=== PATIENT | female | born 1950 | race Caucasian/White ===

== ENCOUNTER 2018-10-20 10:15 | Emergency (ER) | payer OTHER ==
[~2018-10-20] VITALS: Ht 170.2 cm; Wt 54.4 kg
[2018-10-20 10:30] LABS: ABSOLUTE NEUTROPHILS 17.7 thou/uL (1.4-8.2); BASOPHILS 0.2 % (0.0-2.0); HEMATOCRIT 36.5 % (37.0-47.0); HEMOGLOBIN 12.2 gm/dL (12.0-15.0); LYMPHOCYTES 3.5 % (24.0-44.0); MCH 28.6 pg (26.0-34.0); MCHC 33.5 g/dL (28.0-37.0); MCV 85.3 fL (80.0-100.0); MONOCYTES 2.8 % (1.0-8.0); PLATELET COUNT 410 thou/uL (150-400); POLYS 93.5 % (36.0-66.0); RBC 4.27 mil/uL (4.20-5.00); RDW 15.5 % (10.5-14.5); WBC 18.9 thou/uL (4.0-11.0)
[2018-10-20 10:35] LABS: URINE BLOOD 1+ (Negative); URINE CLARITY CLOUDY; URINE COLOR YELLOW; URINE GLUCOSE-RANDOM* NEGATIVE (Negative); URINE KETONES 3+ (Negative); URINE LEUKOCYTES 2+ (Negative); URINE NITRITE POSITIVE (Negative); URINE PROTEIN (DIPSTICK) 1+ (Negative); URINE SPECIFIC GRAVITY >= 1.030 (1.005-1.035)
[2018-10-20 10:46] LABS: CREATININE 0.8 mg/dL (0.6-1.0); POTASSIUM 3.6 mmol/L (3.5-5.1)
[2018-10-20 10:51] LABS: ALBUMIN 2.4 g/dL (3.4-5.0); TOTAL BILIRUBIN 0.6 mg/dL (<0.1-1.0); TOTAL PROTEIN 7.9 g/dL (6.4-8.2)
[2018-10-20 11:02] LABS: ICTOTEST (BILI CONFIRMATORY) Negative (Negative); URINE BILIRUBIN NEGATIVE (Negative)
[2018-10-20 11:04] LABS: URINE REDUCING SUBSTANCE NEGATIVE
[2018-10-20 11:07] LABS: CRYSTALS None Seen /LPF (None Seen); HYALINE CASTS 0-3 Few /LPF (None Seen); SQUAMOUS 0-3 Few /LPF (0-3); URINE RBC None Seen /HPF (0-2); URINE WBC >25 Many /HPF (0-5)
[2018-10-20 16:11] VITALS: BP 129/76
== END 2018-10-20 16:13 | disposition short-term general hospital (02) ==
LOC: ER 10:15
PROVIDERS: Emergency Medicine
DX: N13.30 Unspecified hydronephrosis (principal); N39.0 Urinary tract infection, site not specified; R19.00 Intra-abdominal and pelvic swelling, mass and lump, unspecified site; Z88.5 Allergy status to narcotic agent; Z88.0 Allergy status to penicillin

== ENCOUNTER 2018-11-10 13:16 | Inpatient (IN) | payer OTHER ==
[~2018-11-10] VITALS: Ht 170.2 cm; Wt 52.0 kg
--- NOTE | ~2018-11-10 | O ---
[facility] [place] [address] OPERATIVE REPORT Name: ANTOINE LACKEY Room #: 427-P ADM IN M.R.#: [id number] Admission: 11/10/18 ������������������ Attend Phys: Iftikhar Novoa MD Discharge: ������������������ Date of : 48 Report #: [id number] THIS REPORT FOR: //name// CC: FAM unknown Iftikhar Novoa PREOPERATIVE DIAGNOSIS: Near obstructing sigmoid mass. POSTOPERATIVE DIAGNOSES: Near obstructing sigmoid mass and a suspicious liver lesion on the anterior aspect of the left lobe of the liver. OPERATIVE PROCEDURE DONE: 1. Laparoscopic sigmoidectomy with colorectal anastomosis. 2. Laparoscopic splenic flexure mobilization. 3. Liver biopsy. OPERATING SURGEON: Jameel Berry MD. INDICATIONS: The patient is a 68-year-old female who presented with features of cachexia, weight loss, abdominal discomfort and features of partial bowel obstruction. The patient had a CT scan and the colonoscopy that showed a sigmoid mass that is suspicious. The patient was advised laparoscopic resection of the same. DESCRIPTION OF PROCEDURE: After explaining to the patient in detail and informed consent was obtained, the patient was identified in the preoperative holding area. The patient was transferred to the operating room and was placed in supine position. Sequential compression devices were placed for DVT prophylaxis. Preoperative antibiotics were given. After induction of anesthesia, the abdomen was prepped and draped in a sterile fashion. Through a right upper quadrant 1-cm incision and using Optiview technique, peritoneal cavity was entered and pneumoperitoneum was created. Thereafter, under direct vision, another 5-mm trocar was placed in the right lower quadrant. A 12-mm trocar was placed through a supraumbilical vertical incision and the 5-mm trocar was placed in the left flank region. On initial inspection, there was no evidence of any metastatic disease on the liver, except for one area on the anterior surface of the left lobe of the liver that was not very suspicious; however, appeared a little whitish. Therefore, I decided to biopsy this area. A small segment of this lesion was sent for histopathology. Once this was completed, the patient was placed in Trendelenburg position. The colon was mobilized along the white line of Toldt. This was continued superiorly. I continued the dissection along the avascular plane using sharp and blunt dissection superiorly up to the splenic flexure. The splenic flexure was mobilized. The small bowel was mobilized. Once this was completed, I continued to mobilize the colon inferiorly. The sigmoid was found to be adherent onto the lateral abdominal wall. This had to be dissected using sharp and blunt dissection. I then dissected on the distal transection point at the sigmoid [address] [address] OPERATIVE REPORT Name: ANTOINE LACKEY Room #: 427-P [facility] IN M.R.#: [id number] Admission: 11/10/18 ������������������ Attend Phys: Iftikhar Novoa MD Discharge: ������������������ Date of : 48 Report #: [id number] rectal region. A window was created in the mesentery at this point and once this was completed, using an Endo-IONA green load stapler, the colon was divided at the rectosigmoid region. I then divided the small distal sigmoid vessels using another white load stapler on the mesentery. I continued to divide the mesentery proximally. The inferior mesenteric artery was divided at its root using EnSeal. Once this was completed, I then decided to exteriorize the colon through a midline incision measuring approximately about 6 cm. The peritoneal cavity was entered. An Jatinder wound protector was then inserted. The colon was then exteriorized. I then used a dilator to assess the rectum. A 25 and a 28 size dilators were inserted and both went in without difficulty up to about 10 cm. There was some difficulty to kind of pass all the way up to the staple line for some reason; therefore, I decided to take out another 3 more centimeters of the rectal stump by using another green load stapler. Once this was completed, I then used a size 28-mm anvil and this was inserted into the descending colon after dividing the descending sigmoid junction. Prior to this, a purse magan was used to place a pursestring suture in the descending colon and through this, the anvil was inserted. The sigmoid colon was removed. The pursestring suture was ligated with the tip of the anvil pointing out. Once this was completed, a 28-mm circular stapler was then inserted into the rectum and this was advanced. An end-to-end anastomosis was then made. The donuts were then examined and were found to be intact. An air leak test was performed. There was no leak that was noted along the staple line. Through saline irrigation of the abdomen was given. Absolute hemostasis was ensured. The abdomen was then deflated. The wound protector was removed and the midline incision was closed with a #1 PDS for the fascia. Skin was closed with makenna. Dressing was placed. Prior to this, a 19-Uruguayan SMITH drain was placed in the pelvis. The patient was awoken from anesthesia and was transferred to the recovery room in stable condition. ESTIMATED BLOOD LOSS: Approximately 150 mL. CONDITION OF THE PATIENT: Stable. FLUIDS GIVEN: Per Anesthesia note. SPECIMEN SENT: Sigmoid colon and a liver biopsy specimen. COMPLICATIONS: None. ANESTHESIA: General anesthesia. ��������������������������������������������� ���������������������������������������� By: ��������������������������������������������� 2001 34 Jameel Berry MD /sachin
[2018-11-10 13:18] VITALS: BP 117/68
[2018-11-10 13:49] LABS: HEMATOCRIT 38.5 % (37.0-47.0); HEMOGLOBIN 13.2 gm/dL (12.0-15.0); MCH 29.4 pg (26.0-34.0); MCHC 34.4 g/dL (28.0-37.0); MCV 85.3 fL (80.0-100.0); PLATELET COUNT 279 thou/uL (150-400); RBC 4.51 mil/uL (4.20-5.00); RDW 18.8 % (10.5-14.5); WBC 6.6 thou/uL (4.0-11.0)
[2018-11-10 14:04] LABS: ANION GAP 16 mmol/L (7-16); BUN 15 mg/dL (7-18); CALCIUM 9.7 mg/dL (8.5-10.1); CHLORIDE 94 mmol/L (98-107); CO2 25 mmol/L (21-32); CREATININE 0.9 mg/dL (0.6-1.0); GLUCOSE 160 mg/dL (74-106); POTASSIUM 3.5 mmol/L (3.5-5.1); SODIUM 135 mmol/L (136-145)
[2018-11-10 14:10] LABS: ALBUMIN 2.8 g/dL (3.4-5.0); LIPASE 79 U/L (73-393); SGOT 17 U/L (15-37); SGPT 12 U/L (30-65); TOTAL BILIRUBIN 0.7 mg/dL (<0.1-1.0); TOTAL PROTEIN 7.6 g/dL (6.4-8.2); TROPONIN-I <0.06 ng/mL (<0.06)
[2018-11-10 14:20] LABS: ABSOLUTE NEUTROPHILS 4.5 thou/uL (1.4-8.2); ANISOCYTOSIS 1+; METAMYELOCYTES 1 %; NUCLEATED RBCS 1 /100WBC
[2018-11-10 16:59] VITALS: BP 154/65
[2018-11-10 17:46] VITALS: BP 104/61
[2018-11-10 17:47] LABS: ALBUMIN 2.9 g/dL (3.4-5.0); TOTAL PROTEIN 7.3 g/dL (6.4-8.2)
[2018-11-10 18:50] LABS: TSH 1.882 uIU/mL (0.358-3.740)
[2018-11-10 19:23] VITALS: BP 110/59
--- NOTE | 2018-11-10 19:53 | NUR ---
PT ARRIVED TO UNIT FROM ED AT 18:45. PT ORIENTED TO ROOM AND CALL LIGHT. IV FLUIDS STARTED ORDERED. YELLOW SOCKS AND BED ALARM ON. REPORT GIVEN TO ONCOMING SHIFT.
--- NOTE | 2018-11-10 23:35 | NUR ---
PATIENT ADMITTED TO 4E FROM ED AT 1840 ACCOMPANIED BYMATY RODRIGUES. ARRIVEN VIA W/C. PATIENT ALERT AND ORIENTED X4. FORGETFUL. NEEDS REINFORCEMENT OF THINGS. DENIES N/V/PAIN WHEN ARRIVED ON UNIT. BOWEL PREP STARTED. IV FLUIDS RUNNING AT 125ML/HR.
[2018-11-11 04:41] VITALS: BP 111/57
[2018-11-11 05:31] LABS: HEMATOCRIT 33.7 % (37.0-47.0); HEMOGLOBIN 11.3 gm/dL (12.0-15.0); MCH 28.9 pg (26.0-34.0); MCHC 33.6 g/dL (28.0-37.0); MCV 86.1 fL (80.0-100.0); RBC 3.92 mil/uL (4.20-5.00); RDW 19.1 % (10.5-14.5); WBC 5.2 thou/uL (4.0-11.0)
[2018-11-11 05:44] LABS: CALCIUM 8.5 mg/dL (8.5-10.1); CREATININE 0.5 mg/dL (0.6-1.0); MAGNESIUM 1.7 mg/dL (1.8-2.4); POTASSIUM 3.5 mmol/L (3.5-5.1)
[2018-11-11 08:00] VITALS: BP 121/64
--- NOTE | 2018-11-11 09:39 | NUR ---
ASSUMED CARE AT 0700, SHIFT ASSESSMENT DONE, NPO SINCE LAST NIGHT. BOWEL PREP COMPLETE. CONSULTS CALLED. LEFT FOR COLONOSCOPY AT 0900 AM.
--- NOTE | 2018-11-11 16:38 | EKG ---
[place] [address] [facility] [place] [address] ELECTROCARDIOGRAM REPORT Name: ANTOINE LACKEY Room #: 424-P ADM IN M.R.#: [id number] ������������������ Admission: 11/10/18 ������������������ Attend Phys: Iftikhar Novoa MD Discharge: ������������������ Date of : 48 Report #: [id number] ����������������������������������������������������������������� [id number] THIS REPORT FOR: //name// [facility] ED Test Date: 2018-11-10 Test Time: 13:52:40 Pat Name: ANTOINE LACKEY Department: Room: [facility] Gender: F Customer Success Associate: ZAG : 1950 Requested By: Dennys Hernandez Order Number: [id number] MD: Tunde Tirado Measurements Intervals Wells Rate: 84 P: 92 AL: 115 QRS: 80 QRSD: 78 T: 77 QT: 360 QTc: 426 Interpretive Statements Sinus rhythm Borderline short AL interval No previous ECG available for comparison Electronically Signed On 11-11-2018 16:37:46 CDT by Tunde Tirado [email or web address] ��������������������������������������������� <ELECTRONICALLY SIGNED> ���������������������������������������� By: Tunde Tirado MD, [facility] ��������������������������������������������� 11/11/18 1637 1352 51 Tunde Tirado MD, FACC /EPI
--- NOTE | 2018-11-11 17:23 | NUR ---
PATIENT CAME BACK FROM EGD AT 1200, VSS. REPORTED ABDOMINAL CRAMPING AND PAIN. PRN SIMETHICONE AND DILAUDID GIVEN. PATIENT TO BEGIN BOWEL PREP FROM THIS EVENING. WENT DOWN TO [facility] TO ROOM 225.
[2018-11-11 17:34] VITALS: BP 139/74
--- NOTE | 2018-11-11 22:08 | NUR ---
Assumed pt care at 1900,pt A/OX4,very tearful at beginning of shift stating nobody understands her and what she's going through 1:1 reassurance provided and pt calm down. Medicated with Dilaudid/Zofran and pt verbalized feeling better. Pt was supposed to start bowel prep at 1700,she declined stating she can't handle it today and wants it rescheduled for tomorrow and colonoscopy the next day. notified regarding above at 2134,no new orders given.IVF infusing via LAC without any problems noted. Pt resting quietly with eyes closed at this time. Hourly rounding done. Call light/personal items within reach.Will continue to monitor pt.
[2018-11-12 07:15] LABS: HEMATOCRIT 35.6 % (37.0-47.0); HEMOGLOBIN 12.1 gm/dL (12.0-15.0); MCH 29.3 pg (26.0-34.0); MCV 86.3 fL (80.0-100.0); RBC 4.13 mil/uL (4.20-5.00); WBC 6.3 thou/uL (4.0-11.0)
[2018-11-12 07:52] LABS: CALCIUM 8.1 mg/dL (8.5-10.1); CREATININE 0.6 mg/dL (0.6-1.0); MAGNESIUM 1.6 mg/dL (1.8-2.4)
[2018-11-12 07:57] LABS: POTASSIUM 2.8 mmol/L (3.5-5.1)
[2018-11-12 08:54] VITALS: BP 122/80
--- NOTE | 2018-11-12 14:41 | NUR ---
INITIAL ASSESSMENT: APOLLO reviewed chart and spoke with nursing and attending physician. Pt [facility] to [facility] from . Pt was admitted from home due to intractable vomiting/weight loss. Pt with sigmoid mass. Attempt to do colonoscopy yesterday was unsuccessful. Pt did not do the bowel prep last night as instructed. SW met with pt at bedside. Introduced role of SW. Pt is alert/orientated. Pt reports she lives at home in an apt. Pt lives on the third floor and there is not an elevator. Pt must climb the stairs to get to her apt. Pt does not use any DME. No hx of HH services or SNF/ Rehab placement. Pt states she does not have a PCP. SW explained that bowel prep is needed in order to have a successful colonoscopy. Pt verbalized understanding. SW discussed discharge needs. Pt states she does not have any family/friends who are able to assist her. Pt with family hx of colon cancer. SW discussed possible need for SNF/Rehab placement. Pt states she will not consider going to a facility. APOLLO updated GI SUPERVISOR SHUTTLE [employer]TING, who came to see pt. Pt agreeable with starting bowel prep. SW is following to assist as needed with discharge planning.
--- NOTE | 2018-11-12 18:35 | NUR ---
ASSUMED CARE OF PATIENT AT 0715, PATIENT ALERT AND ORIENTED X 4. UP WITH ASSIST X 1 TO BATHROOM. PATIENT C/O NAUSEA TODAY, ZOFRAN AND COMPAZINE GIVEN IV, WITH GOOD RELIEF. PATIENT C/O PAIN WITH ABDOMEN AREA, HYDROMORPHNE 0.5 MG IV GIVEN. PATIENT CONTINUES TO BE NPO, REFUSED BOWEL PREP LASTNIGHT. BOWEL PREP ORDERED FOR TONIGHT FOR COLONOSCOPY TOMORROW. SCOP PATCH ORDERED TO ASSIST WITH NAUSEA, APPLY PRIOR TO STARTING BOWL PREP. PATIENT HAD IV LEFT AC, NO GOOD, NEW IV STARTED RIGHT FOREARM, WITH NS AT 125CC/HR. PATIENT HAS HAD 3 LOOSE STOOLS THIS SHIFT, VOIDING WITHOUT DIFFICULTY. X-RAY OF ABDOMEN ORDERED AND DONE THIS SHIFT. CRITICAL LAB POTASSIUM 2.8, POTASSIUM IVPB GIVEN X 2. CHARLY CONTINUE TO MONITOR.
[2018-11-12 20:58] VITALS: BP 130/71
--- NOTE | 2018-11-12 23:06 | NUR ---
Assumed pt care at 1900. Pt A/OX4,VSS.C/o some pain to abd but states it tolerable.No c/o nausea on assessment,Scolpamine patch applied behind left ear and bowel prep initiated approx 193. Pt drinking the prep with Gatorade stating the sight of water simply makes her gag. Medicated with Zofran after the second cup of prep,pt is not complaining of nausea but reports her stomach is cramping and she cannot take anymore prep. So far she has drunk 720ml of the prep almost care home through bottle. Pt is having small lose brown stools at this time.Pt needs a lot of encouragement to keep following POC.Potassium administered per protocol,awaiting lab to draw blood.IVF infusing via RFA iv without any problems. Up is weak and requires assist of 1 with transfers/ADLs. Bed alarm on,call light within reach. Will continue to monitor pt.
[2018-11-13 08:46] LABS: HEMATOCRIT 30.6 % (37.0-47.0); HEMOGLOBIN 10.6 gm/dL (12.0-15.0); MCH 29.5 pg (26.0-34.0); MCHC 34.5 g/dL (28.0-37.0); MCV 85.5 fL (80.0-100.0); RBC 3.58 mil/uL (4.20-5.00); RDW 19.6 % (10.5-14.5); WBC 4.9 thou/uL (4.0-11.0)
[2018-11-13 09:05] LABS: ALBUMIN 2.1 g/dL (3.4-5.0); CALCIUM 8.3 mg/dL (8.5-10.1); CREATININE 0.6 mg/dL (0.6-1.0); POTASSIUM 3.7 mmol/L (3.5-5.1); TOTAL BILIRUBIN 0.6 mg/dL (<0.1-1.0); TOTAL PROTEIN 5.8 g/dL (6.4-8.2)
--- NOTE | 2018-11-13 10:35 | NUR ---
SW reviewed chart and spoke with nursing and attending physician. Pt did half of bowel prep for colonoscopy today. Pt may need post-acute placement at time of discharge. APOLLO will follow up with pt after colonoscopy to assist as needed with discharge planning.
--- NOTE | 2018-11-13 19:06 | PATH ---
[facility] [address] [place] [address] PATHOLOGY RPT PROCEDURE Name: CANDACE LACKEY Room #: 225-P ADM IN M.R.#: [id number] ������������������ Admission: 11/10/18 ������������������ Date of : 48 Discharge: Report #: [id number] Path Case #: [id number] [facility] Accession Number: [id number] . 01 Material submitted: . duodenum - DUODENAL BIOPSY R/O MALIGNANCIES . 01 Clinical history: . Weight loss, nausea, vomiting, sigmoid mass Nodular duodenal mucosa Rule out malignancies . 02 Diagnosis: Small bowel mucosa, "duodenum rule out malignancy", endoscopic biopsy: - Gastric cardia and fundic-type mucosa, compatible with gastric heterotopia, clinically nodules. - Negative for dysplasia or malignancy. (IUV:pit 11/13/2018) QTP/11/13/2018 . 02 Electronically signed: . Sera Hines MD, Pathologist NPI- [id number] . 01 Gross description: . The specimen is received in formalin, labeled "Leonard, Candace, duodenal biopsy" and consists of multiple fragments of harvey tissue measuring 1.3 x 0.6 x 0.3 cm in aggregate which are entirely submitted in A1. (SDY; 11/12/2018) SYU/SYU . 02 Pathologist provided ICD-10: Q40.2 . 02 CPT . 995779 Specimen Comment: A courtesy copy of this report has been sent to Specimen Comment: [phone], . Specimen Comment: Report sent to / DR LIZAMA Performed at: [address], [place] [id number] MD Quentin Baeza MD Phone: [phone] Performed at: [address] [id number] MD Sera Hines MD Phone: [phone]
[2018-11-13 19:11] VITALS: BP 127/83
--- NOTE | 2018-11-13 19:46 | NUR ---
CONSULTED TO PLACE A PICC FOR A PATIENT NEEDING TPN. ORDER AND CONSENT NOTED. THE PROCEDURE WELL RISK AND BENIFITS DISCUSSED WITH THE PATIENT AND SHE VERBALIZED UNDERSTANDING. THE RIGHT UPPER ARM BASILIC WAS WIDLEY PATENT. A #5F DOUBLE LUMEN POWER PICC WAS PLACED PER HOSPITAL POLICY AFTER A BEDSIDE TIMEOUT WAS COMPLETE. THE PICC WAS TRIMMED TO 37CM AND ADVANCED WITHOUT DIFFICULTY. A STAT CHEST XRAY CONFIRMED LINE IN PROPER POSITION. LINE SECURED AND RELEASED FOR USE
--- NOTE | 2018-11-14 06:41 | NUR ---
PATIENT ALERT AND ORIENTED X4. C/O PAIN X2, MED GIVEN. C/O N WITH DRY HEAVES X2, MED GIVEN. UP TO BATHROOM WITH ASSIST. PPN HUNG AROUND 2245. PUT HAT IN BATHROOM FOR URINE. SLEPT LITTLE THIS SHIFT.
[2018-11-14 07:29] LABS: HEMATOCRIT 31.2 % (37.0-47.0); MCH 29.9 pg (26.0-34.0); MCHC 35.2 g/dL (28.0-37.0); MCV 84.9 fL (80.0-100.0); RBC 3.67 mil/uL (4.20-5.00); RDW 19.8 % (10.5-14.5); WBC 4.8 thou/uL (4.0-11.0)
[2018-11-14 07:40] LABS: CALCIUM 8.2 mg/dL (8.5-10.1); CREATININE 0.5 mg/dL (0.6-1.0); MAGNESIUM 1.6 mg/dL (1.8-2.4); POTASSIUM 3.1 mmol/L (3.5-5.1)
[2018-11-14 07:45] VITALS: BP 125/73
--- NOTE | 2018-11-14 10:06 | NUR ---
PATIENT CARE WAS ASSUMED AT 0715.PATIENT ALERT AND ORIENTED X4.PATIENT IS ABLE TO AMBULATE WITH STAND BY ASSIST.PT COMPLAINS OF NAUSEA,HAVE NOT WITNESS ANY VOMIT,PT DRY HEAVES.PT WAS ENCOURAGE TO TAKE DEEP BREATHS AND SLOW HER BREATHING DOWN.PT HAS ANXIETY ABOUT WHAT IS GOING ON WIH HER HEALTH.PICC LINE WAS PLACED YESTERDAY PPN AND NS IS CURRENTLY INFUSING.PT STILL HAS LOOSE STOOL.CALL LIGHT, PHONE, AND PERSONAL BELONGINGS ARE WITHIN REACH.
--- NOTE | 2018-11-14 10:22 | NUR ---
Note pt starting tpn. Recommend slow advance to final goal rate of 60ml/hr. Recommend orders for pharmacy to manage.
--- NOTE | 2018-11-14 15:05 | PATH ---
[facility] [address] [place] [address] PATHOLOGY RPT PROCEDURE Name: CANDACE LACKEY Room #: 225-P ADM IN M.R.#: [id number] ������������������ Admission: 11/10/18 ������������������ Date of : 48 Discharge: Report #: [id number] Path Case #: [id number] L[facility] Accession Number: [id number] . 01 Material submitted: . rectum - BX POLYP AT RECTUM . 01 Clinical history: . Pre-OP DX: Nausea with vomiting, sigmoid mass Post-OP DX: Sigmoid obstruction, diverticulosis, rectal polyp . 02 Diagnosis: Colonic mucosa "rectum", biopsy: - Hyperplastic polyp. - There is no evidence of adenomatous change, high grade dysplasia or malignancy. (SHA/db; 11/14/2018) LBQ/11/14/2018 . 02 Electronically signed: . Laurent Marino MD, Pathologist NPI- [id number] . 01 Gross description: . Received in formalin labeled "Candace Lackey, BX polyp at rectum," is a single segment of harvey soft tissue measuring 0.3 cm in maximum dimension. The specimen is entirely submitted in cassette A1. (TSD; 11/13/2018) TOB/TOB . 02 Pathologist provided ICD-10: K62.1 . 02 CPT . 107296 Specimen Comment: A courtesy copy of this report has been sent to Specimen Comment: [phone], . Specimen Comment: Report sent to / DR LIZAMA Specimen Comment: A duplicate report has been generated due to demographic updates. Performed at: [address] [id number] MD Quentin Baeza MD Phone: [phone] Performed at: [address] [id number] [address] [address] PATHOLOGY RPT PROCEDURE Name: CANDACE LACKEY [facility] Room #: 225-P [facility] IN M.R.#: [id number] ������������������ Admission: 11/10/18 ������������������ Date of : 48 Discharge: Report #: [id number] Path Case #: [id number] MD Sera Hines MD Phone: [phone]
[2018-11-14 16:19] LABS: CREATININE 0.5 mg/dL (0.6-1.0); MAGNESIUM 1.5 mg/dL (1.8-2.4); POTASSIUM 3.2 mmol/L (3.5-5.1)
--- NOTE | 2018-11-14 16:20 | NUR ---
APOLLO reviewed chart and spoke with nursing and attending physician. Pt to have laparoscopic sigmoidectomy on Saturday per surgery. Pt is on TPN. APOLLO met with pt at bedside to provide update and discuss discharge plan. Pt very tearful stating she is worried about the surgery. Supportive listening provided. APOLLO discussed need for post-acute placement with pt and provided list with in-network SNFs for review. Pt verbalized understanding and will review list. No weekend discharge anticipated. Will need insurance authorization for post-acute placement. APOLLO is following to assist as needed with discharge planning.
[2018-11-14 20:17] VITALS: BP 131/77
--- NOTE | 2018-11-15 04:38 | NUR ---
PATIENT ALERT AND ORIENTED X4. ALWAYS SLIGHTLY ANXIOUS TO MODERATE. THIS NURSE HUNG TPN AT 20ML/HR PPN WAS INFUSING BEFORE ORDERS CHANGED. IVF HAS BEEN DISCONTINUED. COOPERATIVE WITH CARE. UP WITH SBA TO BATHROOM. MEDICATED FOR PAIN X1 DURING THE NIGHT WITH GOOD RESULTS. ALSO MEDICATED WITH ZOFRAN - PATIENT HAS HAD DRY HEAVES WITH NO EMESIS. MAY HAVE SURGERY SATURDAY. RESTING QUIETLY. WILL MONITOR.
[2018-11-15 06:22] LABS: HEMATOCRIT 28.1 % (37.0-47.0); HEMOGLOBIN 9.7 gm/dL (12.0-15.0); MCH 29.3 pg (26.0-34.0); MCHC 34.5 g/dL (28.0-37.0); MCV 85.1 fL (80.0-100.0); RBC 3.3 mil/uL (4.20-5.00); RDW 19.5 % (10.5-14.5); WBC 4.6 thou/uL (4.0-11.0)
[2018-11-15 06:37] LABS: ALBUMIN 1.8 g/dL (3.4-5.0); CALCIUM 7.9 mg/dL (8.5-10.1); CREATININE 0.4 mg/dL (0.6-1.0); MAGNESIUM 1.6 mg/dL (1.8-2.4); TOTAL BILIRUBIN 0.7 mg/dL (<0.1-1.0); TOTAL PROTEIN 5.2 g/dL (6.4-8.2)
[2018-11-15 06:41] LABS: POTASSIUM 2.9 mmol/L (3.5-5.1)
[2018-11-15 08:26] VITALS: BP 117/68
--- NOTE | 2018-11-15 16:15 | NUR ---
ASSUMED CARE OF PATIENT AT 0715, PATIENT ALERT AND ORIENTED X 4. PATIENT UP WITH SBA TO BATHROOM, AND PATIENT AMBULATED IN HALLWAYS WITH THIS RN THIS AFTERNOON, PATIENT GETTING SOMEWHAT STRONGER, STILL HAS SOME WEAKNESS. PATIENT CONTINUES TO HAVE DIARRHEA X 3 PRIOR TO TRANSFER, URINATING W/O DIFFICULTY. PATIENT HAS C/O NAUSEA X 2 PRIOR TO TRANSFER TO [facility]. PATIENT RECEIVED SPONGE BATH THIS AM. PATIENT C/O PAIN X 1 HYDROMORPHONE 0.5 MG IV GIVEN WITH GOOD RELIEF. PATIENT HAS TPN AT 20CC/HR, PHARMACY WILL INCREASE TPN TOLERATED. PATIENT HAS REDNESS TO TAILBONE AREA. PATIENT WILL HAVE SURGERY ON SATURDAY/DR WRIGHT. WILL REPORT Paula LIU/RN.
--- NOTE | 2018-11-15 18:21 | NUR ---
PATIENT TRANSFERRED TO , REPORT GIVEN TO ALEXA/YANNI. EVERYTHING DONE ON THIS PATIENT. ALL PERSONAL BELONGINGS AND CHART SENT WITH THE PATIENT.
[2018-11-15 19:45] VITALS: BP 115/65
--- NOTE | 2018-11-15 23:55 | NUR ---
Assumed care of pt at 1900. Pt alert and oriented x4. Stand by assist to the restroom. Pt is anxious this hs and wants to be able to sleep. Pain controlled with prn pain meds and antiemetics administered as well. TPN infusing. Call light within reach. Fall precautions in place. Report given to elvis rivera rn.
[2018-11-16 04:00] VITALS: BP 123/60
[2018-11-16 06:03] LABS: HEMATOCRIT 26.7 % (37.0-47.0); HEMOGLOBIN 9.3 gm/dL (12.0-15.0); MCHC 34.7 g/dL (28.0-37.0); MCV 86.5 fL (80.0-100.0); RBC 3.09 mil/uL (4.20-5.00); RDW 19.5 % (10.5-14.5)
[2018-11-16 06:14] LABS: CALCIUM 8.2 mg/dL (8.5-10.1); CREATININE 0.4 mg/dL (0.6-1.0); MAGNESIUM 2.1 mg/dL (1.8-2.4); PHOSPHORUS 3.4 mg/dL (2.5-4.9); POTASSIUM 3.8 mmol/L (3.5-5.1)
[2018-11-16 07:03] VITALS: BP 115/60
--- NOTE | 2018-11-16 09:39 | NUR ---
PT A&OX4, PICC IN EMEKA INFUSING TPN @ 20/HR. AMBULATES WITH STAND BY ASSIST AND IS WEAK. PT WILL START BOWEL PREP TODAY. ON CLEAR LIQUIDS. PT HAVING NAUSEA AND ABD PAIN. MEDICATED FOR SYMPTOMS. WILL CONT POC.
[2018-11-16 16:08] VITALS: BP 123/66
[2018-11-16 20:30] VITALS: BP 115/61
[2018-11-17 04:31] VITALS: BP 107/58
[2018-11-17 06:01] LABS: HEMATOCRIT 26.2 % (37.0-47.0); MCH 29.8 pg (26.0-34.0); MCHC 34.3 g/dL (28.0-37.0); MCV 86.9 fL (80.0-100.0); RBC 3.02 mil/uL (4.20-5.00); RDW 19.3 % (10.5-14.5); WBC 5.5 thou/uL (4.0-11.0)
[2018-11-17 06:15] LABS: CALCIUM 7.6 mg/dL (8.5-10.1); CREATININE 0.5 mg/dL (0.6-1.0); MAGNESIUM 2.3 mg/dL (1.8-2.4)
[2018-11-17 06:16] LABS: POTASSIUM 2.3 mmol/L (3.5-5.1)
--- NOTE | 2018-11-17 06:32 | NUR ---
LAB CALLED CRITICAL POTASSIUM OF 2.3 THIS AM,SALES TRAINING REPRESENTATIVE ON DUTY NOTIFIED,PROTOCOL FOLLOWED.SURGERY CAME BY TO TAKE PT DOWN FOR SURGERY,RN STATED THATS SHE WILL NOT BE ABLE TO TAKE PT DOWN TILL POTASSIUM IS CORRECTED,SHE WILL CALL BACK TO LET US KNOW THE NEXT PLAN.PT NPO SINCE [place],ORAL CARE PROVIDED.UP TO BR WITH SBA,HAD EIGHT WATERY STOOLS OVERNIGHT.PT STATED THAT HER BUTTOCK IS SORE,BARRIER CREAM APPLIED,OPTIFOAM APPLIED TOO TO CUSHION HET TAIL BONE PER PT'S REQUEST.TPN GIVEN ORDERED.CONSENT SIGNED IN THE CHART.WILL CONT TO MONITOR.
[2018-11-17 08:09] VITALS: BP 112/52
--- NOTE | 2018-11-17 13:53 | NUR ---
VASCULAR ACCESS NURSE ROUNDING- LINE CONTINUES TO BE APPROPRIATE. THE PATIENT CONTINUES ON TPN AND IV ANTIBIOTICS PENDING SURGERY
[2018-11-17 17:06] VITALS: BP 96/54
--- NOTE | 2018-11-17 17:37 | NUR ---
SW reviewed chart and spoke with attending physician. Pt's surgery today has been rescheduled for Saturday, due to hypokalemia. Pt remains on TPN. SW will follow up with pt tomorrow regarding discharge plans-post acute placement. APOLLO is following to assist as needed with discharge planning.
[2018-11-17 19:37] VITALS: BP 96/48
--- NOTE | 2018-11-18 04:43 | NUR ---
Assumed pt care at 1900,pt A/OX4,VSS.Up with assist of 1/IV pole to the bathroom. C/o abd pain and nausea,medictaed per EMAR with relief reported.Voiding without any difficulties.TPN&fluids infusing via RUE PICC line without any problems. Bed alarm on as pt forgets to call for assistance,hourly rounding done. Pt resting quietly at this time with no distress noted,vero continue to monitor pt.
[2018-11-18 05:52] VITALS: BP 104/51
[2018-11-18 06:34] LABS: HEMATOCRIT 26.4 % (37.0-47.0); HEMOGLOBIN 8.9 gm/dL (12.0-15.0); MCH 29.9 pg (26.0-34.0); MCHC 33.7 g/dL (28.0-37.0); MCV 88.6 fL (80.0-100.0); RBC 2.98 mil/uL (4.20-5.00); RDW 20.6 % (10.5-14.5); WBC 5.4 thou/uL (4.0-11.0)
[2018-11-18 06:49] LABS: CALCIUM 8.4 mg/dL (8.5-10.1); CREATININE 0.4 mg/dL (0.6-1.0); MAGNESIUM 2.2 mg/dL (1.8-2.4); PHOSPHORUS 2.4 mg/dL (2.5-4.9); POTASSIUM 4.6 mmol/L (3.5-5.1)
[2018-11-18 07:24] VITALS: BP 105/59
[2018-11-18 09:38] VITALS: BP 99/51
--- NOTE | 2018-11-18 09:54 | NUR ---
APOLLO reviewed chart and spoke with nursing. Pt is transferring from [facility]. APOLLO met with pt at bedside. Pt's surgery is scheduled for tomorrow. APOLLO discussed post-acute plans with pt. Pt states she has reviewed list and would like a referral to be sent to [facility] for review. Pt hopes to be able to start eating after surgery. Pt is currently on TPN. APOLLO/environmental restoration planner to send referral to [facility]. SW notified [facility] liaison. APOLLO is following to assist as needed with discharge planning.
--- NOTE | 2018-11-18 12:45 | NUR ---
DP sent inital referral SNF to [facility]. Patient will dc later this week. SERENA sent text to Teresa/admissions at [facility] to let her know.
[2018-11-18 20:25] VITALS: BP 104/61
--- NOTE | 2018-11-19 02:14 | NUR ---
Assumed pt care @ 1900.Pt A/OX4,up with SBA/IV pole. VSS.C/o abd pain LOP 5/10 medicated per EMAR with relief reported.Did c/o nausea but declined need for antiemetics. Pt has been having episodes of crying on and off through shift r/t surgery 1:1 reassurance provided and pt calms down easily. PICC line patent on RUE infusing TPN/fluids without problems. Pt was going to have pre-op shower before bedtime but declined stating she's too tired to do anything,prompted X2 with no success;will attempt again later. Pt has been NPO since midnight. Resting quietly at this time eyes closed,will continue to monitor. Bed alarm on and call light/personal items placed within reach.
[2018-11-19 05:09] LABS: HEMOGLOBIN 8.4 gm/dL (12.0-15.0); MCH 30.2 pg (26.0-34.0); MCHC 33.8 g/dL (28.0-37.0); MCV 89.3 fL (80.0-100.0); RBC 2.8 mil/uL (4.20-5.00); RDW 21.9 % (10.5-14.5); WBC 5.4 thou/uL (4.0-11.0)
[2018-11-19 05:26] LABS: CALCIUM 8.1 mg/dL (8.5-10.1); CREATININE 0.4 mg/dL (0.6-1.0); MAGNESIUM 1.9 mg/dL (1.8-2.4); PHOSPHORUS 3.4 mg/dL (2.5-4.9); POTASSIUM 4.9 mmol/L (3.5-5.1)
[2018-11-19 09:16] VITALS: BP 94/55
--- NOTE | 2018-11-19 10:45 | NUR ---
DISCHARGE PLANNING. POST ACUTE CARE RECOMMENDED FOR PATIENT AT DISCHARGE. REFERRAL FAXED TO KATLYN, MANUFACTURING TECHNOLOGIST FOR [facility]. KATLYN NOTIFIED OF REFERRAL AND PATIENTS DISCHARGE NEEDS. [facility]S LIAISON TO BEDSIDE EVAL WITH PATIENT. FOLLOWING TO ASSIST WITH DISCHARGE PLACEMENT NEEDS.
--- NOTE | 2018-11-19 12:06 | NUR ---
APOLLO reviewed chart and spoke with nursing and attending physician. Pt's surgery has been postponed. At this time, surgery is scheduled for 1400 on Saturday. APOLLO updated [facility] liaison, who will meet with pt later today. group fitness instructor faxed referral to [facility]. APOLLO is following to assist as needed with discharge planning.
--- NOTE | 2018-11-19 19:54 | NUR ---
ASSUMED CARE OF PATIENT AT 0715, PATIENT ALERT AND ORIENTED X 4. PATIENT UP WITH SBA TO BATHROOM. ROBER HAS AMBULATED IN HALLWAYS X 2 AND DID SOME STAIRS. PATIENT VOIDING W/O DIFFICULTY. SURGERY HAS BEEN CANCELLED DUE TO DR WIRGHT UNABLE TO SCHEDULE SURGERY TIME UNTIL LATE IN THE EVENING, SURGERY WILL BE ON 11/21/18. PATIENT WAS UPSET BUT CALMED DOWN AFTER REASSURANCE GIVEN. ROBER HAS RIGHT DL PICC LINE WITH TPN AT 40CC/HR AND IV FLUIDS AT 50CC/HR. PATIENT HAS C/O PAIN X 2 THIS SHIFT DILAUDID GIVEN X 2, AND C/O NAUSEA X 2 ZOFRAN IV GIVEN. PATIENT TOLERATING ENSURE CLEAR AND JELLO. WILL CONTINUE TO MONITOR.
--- NOTE | 2018-11-19 20:21 | P ---
[facility] [place] [address] PROCEDURE REPORT Name: ANTOINE LACKEY Room #: 225-P ADM IN M.R.#: [id number] Admission: 11/10/18 ������������������ Attend Phys: Iftikhar Novoa MD Discharge: ������������������ Date of : 48 Report #: [id number] THIS REPORT FOR: //name// CC: FAM unknown Iftikhar Valdez MD PROCEDURE: Flexible sigmoidoscopy with biopsy polypectomy. LOCATION: Room 225. The patient of Dr. Ivan Valdez. INDICATION FOR PROCEDURE: The patient has a suspected mass in the sigmoid colon. Colonoscopy is being performed to evaluate further. Informed consent for this procedure was obtained prior to the administration of any medication. The risks of the procedure, which include bleeding, perforation, infection, complications of sedation and the possibility I could miss something have been explained to the patient. She has indicated her consent by signing. Propofol was slowly titrated before and during this procedure for patient comfort by the anesthesia service. A digital rectal exam was performed, and no palpable masses were palpated. However, deep palpation of the upper rectum reveals a rounded mass-like structure involving the anterior abdomen. This feels like a fixed mass. Then, the Olympus colonoscope was introduced through the anal sphincter and advanced under direct visualization to the 30 cm pallavi. At this point, we did not have any further visible lumen. It looked like normal mucosa that was obstructing and despite multiple different manipulations of the scope and tricks to try to get through these fixed lesions of the sigmoid colon that we frequently see in diverticulosis, I was unable to advance the scope beyond this point safely. So the procedure was terminated at this level and the scope was slowly withdrawn. Findings are noted on withdrawal of the scope. The sigmoid colon itself is fixed at 30 cm. The mucosal lining of the sigmoid colon appears normal. There was one uncomplicated diverticulum noted in the sigmoid colon. In the rectum, there was a single polyp that was removed in toto with regular biopsy forceps and sent to pathology lab. Good hemostasis was noted after that polypectomy. Retroflex view in the rectum did not reveal any other abnormalities. The scope was withdrawn. The patient went to the recovery area in stable condition. She tolerated the procedure well. IMPRESSION: 1. I suspect there is a fixed mass at or above 30 cm in the sigmoid colon. This may be secondary to diverticular stricturing and scarring or there may [address] [address] PROCEDURE REPORT Name: ANTOINE LACKEY Room #: 225-P [facility] IN .R.#: [id number] Admission: 11/10/18 ������������������ Attend Phys: Iftikhar Novoa MD Discharge: ������������������ Date of : 48 Report #: [id number] actually be a mass in this area above the area that I am able to get to. 2. Rectal polyp removed as above, less than 5 mm in size. 3. Single uncomplicated diverticulum in the sigmoid colon. RECOMMENDATIONS: To proceed at this point with surgery. I do not think that any further endoscopy is going to be helpful if we cannot get above this level. Surgery will be consulted per my conversation with Dr. Valdez. Thank you very much once again for allowing me to participate in her care. ��������������������������������������������� <ELECTRONICALLY SIGNED> ���������������������������������������� By: Shilpi Kent DO ��������������������������������������������� 11/19/182020 1507 [id number] Shilpi Kent, /nt
[2018-11-19 21:37] VITALS: BP 115/54
--- NOTE | 2018-11-20 02:22 | NUR ---
Assumed pt care at 1900. Pt A/OX4,VSS.Up with SBA,ambulates with IV pole.Pt c/o nausea at beginning of shift medicated with Compazine since she had already had Zofran earlier and has voiced no further nausea. C/o lower abd pain LOP 7/10,Dilaudid administered as order with partial relief reported. PICC line patent infusing TPN&IVF.Fall precautions in place and pt reminded to call for help and doing so. Resting quietly at this time with eyes closed will continue to monitor pt.
[2018-11-20 07:30] VITALS: BP 90/50
--- NOTE | 2018-11-20 09:21 | NUR ---
PATIENT CARE WAS ASSUMED AT 0715.PATIENT IS ALERT AND ORIENTED X4.PATIENT IS ABLE TO AMBULATE WITH STANDBY ASSIST.PATIENT IS FEELING MUCH BETTER.PATIENT HAS TPN,AND IV FLUIDS INFUSING, THROUGH PICC LINE.NO COMPLAINS OF PAIN OR NAUSEA THIS MORNING.CALL LIGHT, PHONE, AND PERSONAL BELONGINGS ARE WITHIN REACH.
--- NOTE | 2018-11-20 10:48 | NUR ---
APOLLO reviewed chart and spoke with nursing and attending physician. Pt's surgery is scheduled for tomorrow. APOLLO updated [facility] liaison, who states they are able to accept pt when she is medically stable and insurance authorization has been given. APOLLO is following to assist as needed with discharge planning.
[2018-11-20 20:14] VITALS: BP 100/52
[2018-11-20 20:32] VITALS: BP 100/52
[2018-11-21] VITALS (20 sets, daily range): BP systolic 91–142; BP diastolic 46–86
--- NOTE | 2018-11-21 04:24 | NUR ---
Assumed Pt. care at 1900. Remains A&Ox4; swallows meds whole w/o difficulty. Remains cont. B&B. Ambulates w/ stand by asst; gait steady. Remains on lovenox therapy; 2100 dose held d/t surgical procedure in a.m. No s/s of bleeding noted. DL noted to RAC; infusing TPN@40mls/hr and NS@50mls/hr w/o difficulty. 1+ edema noted to LLE. Pt. remains NPO for surgical procedure. Pt . has no c/o pain or discomfort, at this time. No s/s of acute distress noted. Pt, asleep in bed w/ call light/desired belonigngs within reach. Will continue to monitor.
[2018-11-21 06:58] LABS: HEMATOCRIT 23.8 % (37.0-47.0); HEMOGLOBIN 8.3 gm/dL (12.0-15.0); MCH 31.2 pg (26.0-34.0); MCHC 34.8 g/dL (28.0-37.0); MCV 89.7 fL (80.0-100.0); RBC 2.66 mil/uL (4.20-5.00); RDW 21.1 % (10.5-14.5)
[2018-11-21 07:13] LABS: ALBUMIN 1.6 g/dL (3.4-5.0); CALCIUM 8.6 mg/dL (8.5-10.1); CREATININE 0.4 mg/dL (0.6-1.0); MAGNESIUM 1.9 mg/dL (1.8-2.4); PHOSPHORUS 3.5 mg/dL (2.5-4.9); POTASSIUM 4.1 mmol/L (3.5-5.1); TOTAL BILIRUBIN 0.3 mg/dL (<0.1-1.0); TOTAL PROTEIN 5.5 g/dL (6.4-8.2)
--- NOTE | 2018-11-21 11:38 | NUR ---
Nutrition: While pt NPO, REC TPN goal rate of 60 mL/hr to meet ~100% of needs.
--- NOTE | 2018-11-21 12:38 | NUR ---
APOLLO reviewed chart and spoke with nursing and attending physician. Pt is scheduled to have surgery this afternoon around 1400. APOLLO met with pt at bedside. SW provided update regarding plan [facility]. No weekend discharge anticipated. SW updated [place] liaison. APOLLO is following to assist as needed with discharge planning.
--- NOTE | 2018-11-21 19:39 | NUR ---
ASSUMED CARE OF PATIENT AT 0715, PATIENT ALERT AND ORIENTED X 4. UP WITH SBA TO BR. PATIENT C/O PAIN WITH ABDOMENAREA, RECEIVED DILAUDID 0.5 MG X 1 THIS PRIOR TO SURGERY, AND C/O NAUSEA X 2, RECEIVED COMPAZINE 5 MG IV X 1 AND ZOFRAN 4 MG IV X 1 PRIOR TO SURGERY. PATIENT HAS BEEN NPO SINCE MIDNIGHT FOR SIGMOID MASS REMOVAL DR WRIGHT AT 1400, PATIENT LEFT THE UNIT AT 1315. PATIENT HAS REDNESS TO TAILBONE AREA, OPTIFORM APPLIED FOR COMFORT, AND SMALL RASH AREAS TO BACK ARE, LOTION APPLIED THIS AM. ACCU EVERY 6 HOURS, BS 139 AT 1208. REPORT GIVEN TO OBI/RN IN ICU, PATIENT WILL GO TO ICU AFTER RECOVERY.
[2018-11-22] VITALS (24 sets, daily range): BP systolic 90–122; BP diastolic 43–66
[2018-11-22 07:32] LABS: HEMATOCRIT 25.7 % (37.0-47.0); HEMOGLOBIN 8.7 gm/dL (12.0-15.0); MCH 30.5 pg (26.0-34.0); MCHC 33.9 g/dL (28.0-37.0); MCV 89.9 fL (80.0-100.0); RBC 2.86 mil/uL (4.20-5.00); RDW 19.7 % (10.5-14.5); WBC 10.8 thou/uL (4.0-11.0)
[2018-11-22 07:38] LABS: CALCIUM 8.2 mg/dL (8.5-10.1); CREATININE 0.5 mg/dL (0.6-1.0); POTASSIUM 4.1 mmol/L (3.5-5.1)
--- NOTE | 2018-11-22 08:00 | NUR ---
PT ARRIVED IN ICU FROM PACU AT 1915. PT DROWSY AND MOANING; C/O ABD PAIN. CALLED DR. MUÑOZ FOR MED ORDERS. PT REQUESTING PAIN AND NAUSEA MEDS FREQUENTLY. PT MUCH MORE ALERT BY MN. THROUGHOUT THE NIGHT, PT REPORTED INCREASED PAIN RELIEF, BUT CONTINUED TO REQUEST PAIN MEDS Q2H. LAP SITES CDI. RLQ SMITH WITH SANGUINEOUS DRAINAGE. GAUZE AT SMITH SITE SATURATED UPON ARRIVAL TO THE ICU, BUT DID NOT CONTINUE TO DRAIN AT INSERTION SITE. LOVENOX HELD LAST NIGHT PER DR. MUÑOZ. TPN INFUSING OVERNIGHT; PT ALSO TRIED VERY LITTLE CLEAR LIQUIDS AND TOLERATED WELL. VITAL SIGNS STABLE THROUGHOUT THE NIGHT. PT IS EAGER TO GET UP AND MOVE. WILL CONTINUE TO MONITOR.
--- NOTE | 2018-11-22 12:49 | NUR ---
PATIENT ALERT AND ORIENTED X4, ANXIOUS AT TIMES. SINUS RHYTHM ON MONITOR. ON ROOM AIR. TOLERATING CLEAR LIQUID DIET, COMPLAINTS OF NAUSEA. MASON PATENT AND DRAINING. PICC LINE INTACT. UP WITH STANDBY ASSISTANCE. BLOOD SUGAR MONITORED. PAIN MILDLY CONTROLLED WITH MEDICATION. PATIENT UPDATED ON THE PLAN OF CARE. REPORT CALLED TO 4 RADHA RN. NO SIGNS OF ACUTE DISTRESS NOTED AT THIS TIME. PATIENT TRANSFERRED.
--- NOTE | 2018-11-22 15:05 | NUR ---
ASSESMENT COMPLETED. VSS. A/O. PLEASANT. TEARFUL WHEN IN PAIN. NO NOTED SOA. C/O NV. PT RESTING IN BED. SMITH TO BULB SUCTION. WILL CONT. TO MONITOR.
--- NOTE | 2018-11-22 17:07 | NUR ---
DR. WRIGHT ORDERED NUCLEAR WEAPONS CUSTODIAN FOR PT. WAITING FOR PUMP AT THIS TIME. WILL CONT. TO MONITOR.
--- NOTE | 2018-11-22 18:07 | NUR ---
SECRETARY ADMINISTRATIVE ASSISTANT INFUSING. PT VERY ANXIOUS. EDUCATION GIVEN ABOUT SECRETARY ADMINISTRATIVE ASSISTANT PUMP. WILL CONT. TO MONITOR.
[2018-11-23 04:20] VITALS: BP 132/57
--- NOTE | 2018-11-23 04:58 | NUR ---
PT LYING IN BED. DILAUDID MINE ENGINEER PROVIDING PAIN RELIEF. DENIES NAUSEA. VERY ANXIOUS. RESTING COMFORTABLY. NO NEEDS VOICED. CALL LIGHT WITHIN REACH. WILL CONTINUE TO PROVIDE FREQUENT OBSERVATION.
[2018-11-23 07:42] VITALS: BP 129/61
[2018-11-23 07:57] LABS: CREATININE 0.4 mg/dL (0.6-1.0); MAGNESIUM 1.5 mg/dL (1.8-2.4); PHOSPHORUS 2.6 mg/dL (2.5-4.9); POTASSIUM 3.9 mmol/L (3.5-5.1)
--- NOTE | 2018-11-23 18:59 | NUR ---
ASSUMED PATIENT CARE AT 0700. A/O X4. ANXIOUS. ASSISTED PATIENT AMBULATED IN HALLWAY TOLERATED WELL. DOESN'T WANT DRAINK. ON DILAUDID OVER HAULER HELPER FOR PAIN. NO N/V. PROGRESSING TOWARDS POC GOALS.
[2018-11-23 21:43] VITALS: BP 115/58
--- NOTE | 2018-11-24 03:17 | NUR ---
PT LYING IN BED. DILAUDID LIFE SCIENCES INSTRUCTOR PROVIDING PAIN RELIEF. DENIES NAUSEA. ORDER FOR NYSTATIN SWISH AND SPIT OBTAINED FOR IRRITATION/SORES MOUTH. RESTING COMFORTABLY. NO NEEDS VOICED. CALL LIGHT WITHIN REACH. WILL CONTINUE TO PROVIDE FREQUENT OBSERVATION.
[2018-11-24 03:24] VITALS: BP 122/61
[2018-11-24 06:16] LABS: CALCIUM 7.7 mg/dL (8.5-10.1); CREATININE 0.4 mg/dL (0.6-1.0); MAGNESIUM 1.8 mg/dL (1.8-2.4); PHOSPHORUS 2.7 mg/dL (2.5-4.9); POTASSIUM 3.7 mmol/L (3.5-5.1)
[2018-11-24 08:03] VITALS: BP 125/71
--- NOTE | 2018-11-24 14:59 | NUR ---
FAXED CLINICAL UPDATE TO [facility] LEFT MSG WITH KATLYN IN ADM, THAT DCP WILL FAX TODAY'S PT NOTES ONCE AVAILABLE. DCP TO EMANI.
--- NOTE | 2018-11-24 18:39 | NUR ---
PT ASSESSED AT START OF SHIFT. PT HAS HIGH ANXIETY RE EVERYTHING. NEEDS A LOT OF EMOTIONAL SUPPORT. EXTRA TIME SPENT W/ PT. PT TEARFUL RE NOT HAVING RELATIONSHIP W/ HER 3 CHILDREN OR ANY OF HER SIBLINGS. STATED IT WAS HER OWN FAULT. PT AMBULATING THE HALLS W/ STANDBY. HAD SOFT BM W/ FLATUS THIS AFTERNOON. NAUSEA TWICE RELIEVED W/ MEDS. DR. WRIGHT IN THIS AFTERNOON. MARLON EASTMAN AT THIS TIME.
[2018-11-24 22:42] VITALS: BP 126/68
[2018-11-25] VITALS (7 sets, daily range): BP systolic 86–120; BP diastolic 36–58
--- NOTE | 2018-11-25 14:32 | NUR ---
PATIENT IS ALERT AND ORIENTED X4. COMPLAINS OF ABDOMINAL PAIN 7/10 RELIEVED WTIH HYDORMORPHONE IV. PATIENT AMBULATES IN THE HALLWAY WITH MINIMAL ASSISTANCE. PATIENT IS CONCERNED ABOUT HER CAR REMAINING IN THE [employer] PARKING LOT, MARLO LIAO NOTIFIED. PATIENT ATE 1 JELLO CUP AND COMPLAINS OF NAUSEA, RELIEVED BY ONDANESTRON IV.
--- NOTE | 2018-11-25 15:19 | NUR ---
I have reviewed and concur with student documentation.
--- NOTE | 2018-11-25 16:30 | NUR ---
PT UP AMBULATING THE UNIT WITH THERAPY AND STEADY GAIT. PT ALERT XS 4 CONT ON TPN ALSO HAS SOFT FIBER RESTRICTED DIET. BM XS 1 LAST NIGHT. PT IS LACTOSE INTOLERANCE. PT GIVEN PRN PAIN MED.
[2018-11-26 09:06] VITALS: BP 143/63
[2018-11-26 13:06] VITALS: BP 143/63
[2018-11-26 13:30] LABS: CALCIUM 8.3 mg/dL (8.5-10.1); CREATININE 0.4 mg/dL (0.6-1.0); MAGNESIUM 1.8 mg/dL (1.8-2.4); PHOSPHORUS 2.7 mg/dL (2.5-4.9); POTASSIUM 3.8 mmol/L (3.5-5.1)
--- NOTE | 2018-11-26 14:38 | NUR ---
PT IS CONCERNED ABOUT HER CAR THAT IS IN THE PARKING LOT AT [facility] AT [address]. SHE WAS ABLE TO REACH A FRIEND THAT SHE HAD NOT S/W FOR 19 YRS AND SHE WILL HELP HER CHECK ON HER CAR. SHE HAS S/W MANAGEMENT AT [facility] TO ALERT [facility] SO THE CAR WOULD NOT BE TOWED. PT SAYS SHE HAS FAMILY BUT THEY DON'T OWN HER. SHE SAYS SHE HAS NO NEIGHBORS THAT SHE CAN COUNT ON EITHER. RECIVED WORD THAT INS WAS DENYING PT FOR SKILLED BUT WILL OFFER A P-P THAT NEEDS TO BE DONE BY [address]. [address] AGUILA NOTIFIED THAT HE NEEDS TO CALL DR COTTER AT [phone] OPT 5. S/W JIMMY FURNITURE DUSTER TO INFORM THAT PT NOW HAS SORES IN HER MOUTH, JIMMY WILL S/W PT RELATED MORE OPTIONS FOR HER LACTOSE INTOLEANT DIET. FOLLOWING.
--- NOTE | 2018-11-26 16:06 | PATH ---
[facility] [address] [place] [address] PATHOLOGY RPT PROCEDURE Name: CANDACE LACKEY Room #: 427-P ADM IN M.R.#: [id number] ������������������ Admission: 11/10/18 ������������������ Date of : 48 Discharge: Report #: [id number] Path Case #: [id number] [facility] Accession Number: [id number] . 01 Material submitted: . PART A: sigmoid colon - SIGMOID COLON PART B: colon - SIGMOID ANASTOMOTIC RINGS AND RECTAL STUMP PART C: liver - LIVER BIOPSY . 01 Clinical history: . Sigmoid mass. . 01 Frozen section diagnosis: . Intraoperative gross consultation: (By Dr. Sera Hines) . A. Large intestine, sigmoid colon, resection: Exophytic tumor mass identified 8 cm from stapled margin. . Gross findings displayed to Dr. Berry in OR1 at [facility]. . (IUV:pit 11/24/2018) . Intraoperative gross consultation performed at [facility], [address], [place] [address]. /QTP . 02 Diagnosis: A. 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 - Margins of resection free of malignancy; closest mesenteric margin is 1.0 cm away and 8.0 cm away from the stapled margin. - ONE LYMPH NODE SHOWING ADENOCARCINOMA OF THIRTY-SIX SAMPLED (1/36). . B. Sigmoid anastomotic rings and rectal stump: - Large intestinal mucosa with reactive changes. - Negative for malignancy. - Three reactive lymph nodes identified in adipose tissue (0/3). . C. Liver, biopsy: - Compatible with subcapsular sclerosed hemangioma. - Von Meyenburg complex. - Focal non-neoplastic lung parenchyma showing reactive changes. - Negative for malignancy. . Surgical Pathology Cancer Case Summary [address] [address] PATHOLOGY RPT PROCEDURE Name: CANDACE LACKEY TRACY Room #: 427-P [facility] IN .R.#: [id number] ������������������ Admission: 11/10/18 ������������������ Date of : 48 Discharge: Report #: [id number] Path Case #: [id number] . COLON AND RECTUM Tumor site: Sigmoid colon Specimen integrity: Intact Tumor size: 4.8 cm in greatest dimension Tumor configuration: Exophytic Histologic type: Adenocarcinoma Histologic grade: G2, moderately differentiated Tumor extension: Tumor invades the visceral peritoneum (tumor cells identified on the serosal surface) Macroscopic tumor perforation: Identified grossly Margins: All margins uninvolved by invasive carcinoma, high-grade dysplasia, intramucosal adenocarcinoma and adenoma Margins examined: All margins uninvolved by invasive carcinoma, high-grade dysplasia, intramucosal adenocarcinoma and adenoma. Margins examined - proximal, distal and mesenteric margins Distance of invasive carcinoma from closest margin (cm) - 1.0 cm Closest margin: Mesenteric margin Treatment effect: No know presurgical therapy Lymphovascular invasion: Indeterminate Perineural invasion: Not identified Tumor deposits: Not identified Regional lymph nodes: Number of lymph nodes involved: 1 Number of lymph nodes examined: 39 total Pathologic stage classification (pTNM): Primary tumor: pT4a - tumor invades through the visceral peritoneum (including gross perforation of bowel through tumor and continues invasion of tumor through areas of inflammation to the surface of visceral peritoneum) Regional lymph nodes: pN1a - one regional lymph node is positive Distant metastasis: pMX . (IUV:pit 11/24/2018) QTP/11/24/2018 . 02 Comment: Macroscopic tumor perforation was identified grossly. The tumor is identified at the black ink in this area consistent with invasion into the visceral peritoneum. Sections of the mesenteric margin submitted are negative for malignant tumor at the margin. These findings are reflected in the synoptic report assembled. . Safety Attendant slides of this case were co-reviewed by Dr. Veena Sampson who concurs with my diagnosis. [address] [address] PATHOLOGY RPT PROCEDURE Name: CANDACE LACKEY Room #: 427-P [facility] IN M.R.#: [id number] ������������������ Admission: 11/10/18 ������������������ Date of : 48 Discharge: Report #: [id number] Path Case #: [id number] (IUV:pit 11/24/2018) . 02 Addendum: . MICROSATELLITE INSTABILITY REPORT (MSI): . Per [facility] Cancer Committee Protocol, mismatch repair (MMR) protein immunohistochemical staining was performed on block A5. . Reason for testing:To evaluate for evidence of defective mismatch repair proteins. Method:Immunohistochemical staining for the presence or absence of protein expression of one or more of the following MMR protein markers: MLH1, MSH2, MSH6 and PMS2. Tumor type:Invasive adenocarcinoma . Results: MLH1 -Preserved MSH2 -Preserved MSH6 -Preserved PMS2 -Preserved . Mismatch Repair Status:MMR Proficient (MMR-P) . Interpretation: . (MMR-P) All four MMR proteins are preserved within tumor cells. This suggests the presence of normal DNA mismatch repair function within the tumor and an observable defect in mismatch repair is not identified. The likelihood that this patient has an inherited germline mutation syndrome due to defective mismatch repair is reduced but not totally eliminated. If the patient has a strong personal or family history of HPNCC/Glass syndrome related cancers (colorectal, endometrial, gastric, ovarian, pancreatic, ureter/renal pelvis, biliary tract, brain, small bowel and [place]-Ron syndrome), consider MSI testing by PCR methodology. Suggest clinical correlation and follow up. . These test results are designed for screening purposes only and are useful tools in identifying cancer patients that are more likely to have Glass Syndrome related diagnoses. Tests should be interpreted in the context of clinical findings, family history and laboratory data. Abnormal IHC results for MMR protein expression are not considered diagnostic for Glass Syndrome. . (IUV:pit 11/26/2018) . Professional services performed by [employer] at [facility], [address], [place] [address]. Technical services performed by [employer] at [address] [place] [address], [address], [place] [address]. [facility] [address] [place] [address] PATHOLOGY RPT PROCEDURE Name: CANDACE LACKEY Room #: 427-P ADM IN M.R.#: [id number] ������������������ Admission: 11/10/18 ������������������ Date of : 48 Discharge: Report #: [id number] Path Case #: [id number] MBR/11/26/2018 Addendum Electronically Signed by Sera Hines MD, Pathologist . 02 Electronically signed: . Sera Hines MD, Pathologist NPI- [id number] . 01 Gross description: . A. Received fresh, labeled "Candace Lackey, sigmoid colon" is a segment of large bowel measuring 21 cm in length and 3.8 cm in diameter. One margin is received open and the opposite margin is closed with a staple line. The serosa is pink-harvey and smooth with a puckered area measuring 1.3 x 0.8 cm, which is inked black. This area is also associated with a stricture. The specimen is opened to reveal a pink-harvey exophytic mass measuring 4.8 cm in length and 4.5 cm in width. The mass has a greatest third dimension of 3.9 cm. The mass is located 9.5 cm from the open margin and 8.0 cm from the stapled margin. The mass grossly abuts the mesenteric margin (inked blue). The uninvolved colonic mucosa is harvey-brown with unremarkable folding. Upon sectioning, the mass diffusely invades into the pericolonic fat. The pericolonic fat is sectioned to reveal multiple possible lymph nodes ranging from 0.2-0.4 cm in greatest dimension. Safety Attendant sections are submitted as follows: A1 open margin A2 staple line margin A3 registered representative mass to mesenteric margin A4 mass to inked serosa A5 mass to uninvolved mucosa A6 additional mass A7 multiple whole possible lymph nodes A8 one bisected lymph node A9-A20 registered representative fibroadipose tissue to look for additional lymph nodes . B. Received in formalin labeled "Candace Lackey, sigmoid anastomotic rings and rectal stump" are two annular portions of harvey-brown mucosa and surrounding tissue. The first portion measures 1.5 cm in length and 1.3 cm in diameter. The second portion measures 1.3 cm in length and 1.4 cm in diameter and has a black suture and an embedded staple line present. Also present is a segment of bowel measuring 2.0 cm in length and 4.0 cm in diameter. The segment is closed with makenna lines at both aspects. The section of bowel is opened to reveal unremarkable harvey-brown mucosa. Safety Attendant sections are submitted as follows: B1 registered representative first annular portion of tissue B2 registered representative second annular portion of tissue B3-B4 registered representative segment of bowel . C. Received in formalin labeled "Leonard, Candace, liver biopsy" is a fragment of harvey-white, irregular tissue measuring 1.2 x 0.5 x 0.4 cm. The [address] [address] PATHOLOGY RPT PROCEDURE Name: CANDACE LACKEY [facility] Room #: 427-P ADM IN M.R.#: [id number] ������������������ Admission: 11/10/18 ������������������ Date of : 48 Discharge: Report #: [id number] Path Case #: [id number] specimen is sectioned and submitted entirely in cassette C1. ([facility]; 11/23/2018) SYC/SYC . 02 Pathologist provided ICD-10: C18.7, C77.2, D18.03, K76.9 . 02 CPT . 796104, 300656, 043914, 306953, [id number], [id number] Specimen Comment: A courtesy copy of this report has been sent to Specimen Comment: [phone], . Specimen Comment: Report sent to / DR WOODSNO Performed at: [address], [place] [address] MD Quentin Baeza MD Phone: [phone] Performed at: [address] [id number] MD Sera Hines MD Phone: [phone]
--- NOTE | 2018-11-26 17:11 | NUR ---
P-P DONE BY DR AGUILA AND APPROVAL FOR SNF OBTAINED. PT STILL ON TPN. ANTICPATE PT MIGHT BE READY FOR DC TOMORROW TO SNF. [facility] TO BE D'CD TODAY PER DR WRIGHT.
--- NOTE | 2018-11-26 17:32 | NUR ---
PT A&OX4, AMBULATES IN ROOM/BECKER WITH STAND BY ASSIST. IV INFUSING TPN @ 60/HR AND NS @ 50/HR IN EMEKA W/O COMPS. PT IS VERY TEARFUL TODAY INFORMED PT THAT THE COLON MASS WAS CANCER AND HAS SPREAD. PAIN HAS TOLERATED WITH CURRENT TREATMENT. ONCOLOGY HAS BEEN CONSULTED. PT IS TOLERATING APPROX. 30% OF MEALS. WILL CONT. TO MONITOR.
[2018-11-26 21:15] VITALS: BP 106/50
--- NOTE | 2018-11-27 04:05 | NUR ---
ASSESSMENT: PT REMAIN ALERT AND ORIENT TIMES FOUR. UP TO BR WITH SBA. C/O ABD PAIN. PRN IV PAIN MEDICATION GIVEN WITH PARTIAL RESULTS PER PT. PT IS TEARFUL AT TIMES AND STATE TO THIS RN THAT SHE WAS "SCARED". REASSURANCE WAS GIVEN AND ENCOURAGEMENT WAS GIVEN TO NOT WORRY AND LET THE ONCO SPEAK WITH HER ON TOMMORROW. ALSO, IT WAS ENCOURAGED TO TRY AND GET SOME REST DURING THE NIGHT. TPN WAS DC'D BY DR. AGUILA, PER PHARMACY...NO ORDER WRITTEN. POOR PROGRESS TOWARDS DC GOALS. POSSIBLE DC TO [facility] IN THE AM. WILL CONTINUE TO MONITOR.
[2018-11-27 04:59] VITALS: BP 103/51
[2018-11-27 08:02] VITALS: BP 112/63
[2018-11-27] MEDS ORDERED: NYSTATIN100000 UNI SWISH&SPIT (15:04)
[2018-11-27] MEDS ORDERED: ACETAMINOPHEN325 M1 PO (15:05)
[2018-11-27] MEDS ORDERED: MIRALAX17 GM PO (15:07)
[2018-11-27] MEDS ORDERED: PROTONIX40 M1 PO (15:07)
[2018-11-27] MEDS ORDERED: NORCO 5-325 TA1 EACH PO (15:09)
[2018-11-27] MEDS ORDERED: ONDANSETRON HCL4 M2 PO (15:09)
--- NOTE | 2018-11-27 15:15 | NUR ---
PT RESTING IN BED GETS UP TO BATHROOM. NO PAIN AT THIS TIME PT'S DRSG TO ABD CHANGED. IV ABT'S INFUSED ORDERED.
--- NOTE | 2018-11-27 16:11 | NUR ---
RIGHT UPPER ARM PICC LINE DCD. INTACT NO DISCOMFORT TO PATIENT.
--- NOTE | 2018-11-27 16:13 | NUR ---
FAXED DC ORDERS/SUMMARY TO [facility] SPOKE WITH KATLYN IN ADM SHE RECEIVED DC ORDERS AND ARRANGED WC VAN FOR 1730. NOTIFIED UNIT AND CHART COPY PER US. RN TO CALL REPORT TO [phone].
[2018-11-27 16:19] VITALS: BP 107/57
--- NOTE | 2018-11-27 17:48 | NUR ---
[facility] HERE TO TRANSPORT PATIENT IN W/C VAN TO [place] [facility]. PT GIVEN DINNER AND ALSO BOX DINNER AND FOOD TO TAKE WITH HER. PT W/O PAIN OR RESP DISTRESS AT DISCHARGE. DISCHARGE PAPERS SENT WITH PATIENT.
--- NOTE | 2018-11-28 07:05 | HC ---
[facility] [place] [address] CONSULTATION Name: ANTOINE LACKEY Room #: 427-P [facility] IN M.R.#: [id number] Admission: 11/10/18 ������������������ Attend Phys: Iftikhar Novoa MD Discharge: 11/27/18 ������������������ Date of : 48 Report #: [id number] THIS REPORT FOR: //name// CC: Shilpi Kent DO FAM unknown Iftikhar Berry MD REQUESTING PHYSICIAN: Iftikhar Novoa M.D. 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, who lives near [facility], who had about a 20-pound weight loss and abdominal discomfort. A CAT scan appeared to show a sigmoid mass, without any evidence of metastatic disease. There was a questionable liver change. The patient underwent sigmoid resection on the 11/21/2018. 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 It was invading through the subserosal, with a T4a, had 1 of 39 lymph nodes involved sites and this will be a stage III B cancer. 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 This was a grade 2. Microsatellite stable with preservation of all mismatch repair proteins. Lymphovascular invasion was indeterminate. Perineural invasion not identified. Tumor deposits not identified. Total number of lymph nodes were 39. The patient is now recovering. PAST MEDICAL HISTORY: Past history had really been unremarkable. Did have a history of some questionable hydronephrosis in the past. FAMILY HISTORY: Note that father had colon cancer at age 49 and her paternal great grandmother also had colon cancer. There may have be an uncle with stomach cancer. SOCIAL HISTORY: She is retired. She is a nonsmoker, no alcohol, no street drugs. LABORATORY DATA: Lab test was notable for a preoperative CEA of 48. Hemoglobin was good before surgery. Note that recent BUN 12, creatinine 0.4. Liver functions have been normal. Recent hemoglobin 8.7, but note that before surgery, it was up around 11 and 12. White count has been normal, platelet count has been normal. MEDICATIONS: Current medications at this time include scopolamine patch every 3 days, fentanyl p.r.n., hydromorphone p.r.n., nystatin topically, pantoprazole 40 daily, insulin on a sliding scale, was also on metronidazole and [place] [address] CONSULTATION Name: ANTOINE LACKEY Room #: [facility]..#: [id number] Admission: 11/10/18 ������������������ Attend Phys: Iftikhar Novoa MD Discharge: 11/27/18 ������������������ Date of : 48 Report #: [id number] PHYSICAL EXAMINATION: GENERAL: The patient appears her stated age. VITAL SIGNS: She is 5 feet 7 inches, which is 170.2 cm; 114.6 pounds, which is 51.9 ounces. Recent blood pressure 103/51, O2 sat 100%, respirations 18, pulse 98 and afebrile at 98.3. MOOD: She is alert, pleasant and conversant. NEUROLOGIC: Face is symmetrical, moving all extremities. Speech and thought pattern appear to be normal. LUNGS: Clear, symmetric expansion without rhonchi, rales or wheezes. HEART: Regular rate. ABDOMEN: Mildly tender, has makenna consistent with surgery, healing well. EXTREMITIES: Without clubbing or cyanosis. There may be some trace edema. ASSESSMENT AND PLAN: 1. 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 As above discussed, rationale for adjuvant chemotherapy; also she has a risk of recurrence without chemo, probably between 30% and 50%;, that the benefit of chemotherapy is probably between 12% and 18% depending upon the regimen. The higher range would be FOLFOX and the lower range would be 5-FU leucovorin. I also talked about potential toxicities with neuropathy, diarrhea, infection and ; also talked about healing first; also talked about checking a PET scan; also talked about checking a CEA at 3 weeks, as the preop was quite elevated. 2. Family history of colon cancer with microsatellite instability preserved. May still consider genetic consult as outpatient. We will discuss again at a later date. 3. Protein-calorie malnutrition, focus on nutrition. 4. Anemia. We will follow up and see how well that recovers. 5. Weakness, rehabilitation efforts. We will follow with you. ��������������������������������������������� <ELECTRONICALLY SIGNED> ���������������������������������������� By: Tio Wall MD ��������������������������������������������� 11/28/18 0705 [id number] Tio Wall MD /nt
--- NOTE | 2018-11-29 10:46 | HC ---
[facility] [place] [address] CONSULTATION Name: ANTOINE LACKEY Room #: 427-P [facility] IN M.R.#: [id number] Admission: 11/10/18 ������������������ Attend Phys: Iftikhar Novoa MD Discharge: 11/27/18 ������������������ Date of : 48 Report #: [id number] THIS REPORT FOR: //name// CC: FAM unknown Iftikhar Novoa REASON FOR CONSULTATION: Sigmoid mass, nausea and vomiting. HISTORY OF PRESENT ILLNESS: The patient is a 68-year-old female who presented with complaints of weight loss, constipation, nausea and vomiting that she has been having on and off for the last few weeks. The patient has lost about 30 pounds of weight. The patient was apparently seen at [facility] by a bystander wandering aimlessly and not feeling well. The patient has not had a colonoscopy done in the past. The patient's father and grandfather of colon cancer. The patient denies any previous abdominal surgeries. PAST MEDICAL HISTORY: History of vomiting, hydronephrosis and previous urinary tract infection. PAST SURGICAL HISTORY: None significant. CURRENT MEDICATIONS: Currently, the patient is not on any medication. FAMILY HISTORY: Father with colon cancer, paternal grandfather with colon cancer. REVIEW OF SYSTEMS: A 10-point review of system was taken and is negative, except as noted in the HPI. PHYSICAL EXAMINATION: GENERAL: The patient appears comfortable and is not in apparent distress. The patient appears malnourished and cachectic. VITAL SIGNS: Blood pressure is 111/57, pulse is 79 per minute and temperature 36.6. HEENT: Normocephalic, atraumatic. She is anicteric. CARDIOVASCULAR: Heart sounds are regular in rate and rhythm. No murmurs. No added sounds. RESPIRATORY SYSTEM: Breath sounds are bilaterally equal. LUNGS: Clear to auscultation. ABDOMEN: Soft. It is nontender. No masses palpable. EXTREMITIES: No cyanosis or pedal edema. LABORATORY DATA: White cell count is 5.2, hemoglobin is 11.3. BUN and creatinine are normal. Liver function tests are normal. CT scan of the abdomen and pelvis that was done shows sigmoid mass with features of focal-contained perforation, without evidence of an abscess. [address] [address] CONSULTATION Name: ANTOINE LACKEY Room #: 427-P [facility] IN .R.#: [id number] Admission: 11/10/18 ������������������ Attend Phys: Iftikhar Novoa MD Discharge: 11/27/18 ������������������ Date of : 48 Report #: [id number] ASSESSMENT AND PLAN: The patient is a 68-year-old female who is currently admitted with features of generalized weakness, cachexia, nausea, vomiting and the sigmoid mass. The patient is being evaluated by GI and is awaiting upper GI endoscopy and a colonoscopy. We shall await the final report prior to consideration for any surgical intervention. She will continue to follow. Thank you so much for allowing me to participate in the care of this patient. ��������������������������������������������� <ELECTRONICALLY SIGNED> ���������������������������������������� By: Jameel Berry MD ��������������������������������������������� 11/29/18 1046 [id number] Jameel Berry MD /nt
== END 2018-11-27 17:54 | DRG 329 ==
LOC: ER 13:16 → EROBS 16:10 → 4E 16:10 → SICU 16:10 → ER 16:55 → 4E 16:55 → ENTRNSPT 11-11 16:04 → SICU 11-11 16:47 → 4E 11-15 17:02 → SICU 11-18 08:47 → ICU 11-21 19:33 → 4E 11-22 12:41
PROVIDERS: Emergency Medicine; Hospitalist; Nurse Practitioner; Surgery; ADMIT Internal Medicine
PROC: 0DB98ZX Excision of Duodenum, Via Natural or Artificial Opening Endoscopic, Diagnostic (ICD-10-PCS; principal; 2018-11-11)
PROC: 0DBP8ZZ Excision of Rectum, Via Natural or Artificial Opening Endoscopic (ICD-10-PCS; 2018-11-13)
PROC: 02HV33Z Insertion of Infusion Device into Superior Vena Cava, Percutaneous Approach (ICD-10-PCS; 2018-11-13)
PROC: 30233N1 Transfusion of Nonautologous Red Blood Cells into Peripheral Vein, Percutaneous Approach (ICD-10-PCS; 2018-11-21)
PROC: 0FB03ZX Excision of Liver, Percutaneous Approach, Diagnostic (ICD-10-PCS; 2018-11-25)
PROC: 0DTN4ZZ Resection of Sigmoid Colon, Percutaneous Endoscopic Approach (ICD-10-PCS; 2018-11-25)
DX: C18.9 Malignant neoplasm of colon, unspecified (principal); E43 Unspecified severe protein-calorie malnutrition; K57.20 Diverticulitis of large intestine with perforation and abscess without bleeding; Z68.1 Body mass index [BMI] 19.9 or less, adult; E86.0 Dehydration; D64.9 Anemia, unspecified; E87.6 Hypokalemia; K62.1 Rectal polyp; R91.1 Solitary pulmonary nodule; Z88.6 Allergy status to analgesic agent; Z88.0 Allergy status to penicillin; Z80.0 Family history of malignant neoplasm of digestive organs; Z79.899 Other long term (current) drug therapy
CPT/HCPCS: 10078; 10084; 10783; 15002; 27000; 50010; 50011; 50101; 50249; 50290; 50331; 50386; 50445; 50455; 50525; 50555; 50558; 50740; 50804; 50986; 51412; 51489; 51687; 52265; 52266; 53307; 55326; 56462; 56525; 56526; 56527; 56528; 56531; 56639; 56753; 57092; 62110; 62900; 65090; 70005